=== PATIENT | female | born 1970 | race Two or more races ===

== ENCOUNTER → 2020-12-25 | Day surgery (SDC) | payer OTHER ==
[~2020-12-25] MED LIST: ADULT LOW DOSE81 M1 PO; NORVASC2.5 M1 PO; PERCOCET 10-321 EACH PO; TAMOXIFEN CITRA10 MG PO; VITAMIN C100 MG PO
== END | disposition home or self-care (01) ==
LOC: ADM 12-21 08:00 → CIR.AMB 06:07
PROVIDERS: ATTEND Orthopaedic Surgery Hand Surgery
DX: S52.531A Colles' fracture of right radius, initial encounter for closed fracture (principal); Z20.822 Contact with and (suspected) exposure to COVID-19
CPT/HCPCS: 25609; 25118; C1776; 25280

== ENCOUNTER 2022-02-04 06:20 | Day surgery (SDC) | payer OTHER ==
[~2022-02-04] VITALS: Ht 149.9 cm; Wt 57.2 kg
== END 2022-02-04 14:50 | disposition home or self-care (01) ==
LOC: CIR.AMB 06:20
PROVIDERS: ATTEND Orthopaedic Surgery Hand Surgery
DX: S52.531A Colles' fracture of right radius, initial encounter for closed fracture (principal); Z20.822 Contact with and (suspected) exposure to COVID-19; I10 Essential (primary) hypertension
CPT/HCPCS: 25825; 20680; L8699